=== PATIENT | male | born 1945 | race American Indian/Alaskan Native ===

== ENCOUNTER 2017-09-05 07:59 | Day surgery (SDC) | payer MEDICARE ==
[2017-09-05] MEDS ORDERED: VERSED IV NR (08:35)
[2017-09-05] MEDS ORDERED: SUBLIMAZE IV NR (08:35)
[2017-09-05 09:20] LABS: Hematocrit 58.1 % (35.5-45.6); Hemoglobin 19.2 gm/dl (11.8-15.2); Mean Corpuscular HGB Conc 33 % (32-34); Mean Corpuscular Hemoglobin 29 pg (28-32); Mean Corpuscular Volume 87 fl (84-94); Platelet Count 189 K/mm3 (140-440); Red Blood Count 6.71 M/mm3 (3.65-5.03)
[2017-09-05 09:30] LABS: INR 0.91 (0.87-1.13)
[2017-09-05 09:31] LABS: Partial Thromboplastin Time 27.2 Sec. (24.2-36.6)
[2017-09-05 09:56] LABS: Platelet Estimate Consistent w Auto; RBC Morphology Normal; Total Cells Counted 100
[2017-09-05] MEDS ORDERED: SUBLIMAZE IV ONE (10:01)
[2017-09-05] MEDS ORDERED: BENADRYL ONE (11:21)
[2017-09-05] MEDS ORDERED: BENADRYL IV ONE (12:30)
[2017-09-05 13:46] VITALS: BP 139/78
--- NOTE | 2017-09-05 15:16 | Cat Scan Report ---
CT BIOPSY BONE MARROW: HISTORY: Secondary polycythemia. DESCRIPTION OF PROCEDURE: Informed consent was obtained. Sterile technique was utilized. Conscious sedation was accomplished with Versed and fentanyl. The patient was sedated for 25 minutes. Independent cardiorespiratory monitoring by RN. Intra-observer time of [address] guidance, an introducer needle was advanced into the right posterior iliac bone. 4 aspirations and one 11-gauge bone core was obtained. Pathology was present to handle the sample. The patient tolerated the procedure without difficulty. IMPRESSION: Successful CT-guided bone marrow biopsy.
== END 2017-09-05 14:00 | disposition home or self-care (01) ==
LOC: CATHLABREC 07:59 → EDSTATUS 08:30 → CATHLABREC 14:00
PROVIDERS: ATTEND Internal Medicine Hematology
DX: D75.1 Secondary polycythemia (principal); D75.89 Other specified diseases of blood and blood-forming organs; I10 Essential (primary) hypertension; E11.9 Type 2 diabetes mellitus without complications; Z79.01 Long term (current) use of anticoagulants
CPT/HCPCS: 36415; 38222; 77012; 82962; 85007; 85025; 85097; 85610; 85730; 88161; 88305; 88311; 88313; J1200; J2250; J3010; 88184; 88185; 88230; 88291